=== PATIENT | female | born 1970 | race Caucasian/White ===

== ENCOUNTER 2018-09-01 07:34 | Day surgery (SDC) | payer MEDICAID ==
[~2018-09-01 07:34] MED LIST: CEFAZOLIN 2 GM/50 ML (PMX) 50 ML IVPB; SOD CHLORIDE 0.9% 1,000 ML IV
[2018-09-01] MEDS ORDERED: PROPOFOL 40 ML (08:39)
[2018-09-01] MEDS ORDERED: ONDANSETRON 4 MG INJ (08:39)
[2018-09-01] MEDS ORDERED: LIDOCAINE 2% (SDV) 5 ML INJ (08:39)
[2018-09-01] MEDS ORDERED: MIDAZOLAM 1 MG/ML 2 ML INJ (08:39)
[2018-09-01] MEDS ORDERED: FENTAnyl 50 MCG/ML VIAL (08:39)
[2018-09-01] MEDS ORDERED: CEFAZOLIN 1 GM INJ (08:39)
[2018-09-01] MEDS ORDERED: DEXAMETHASONE 4 MG/ML 5 ML INJ (08:40)
[2018-09-01] MEDS ORDERED: FAMOTIDINE 20 MG INJ (08:40)
[2018-09-01] MEDS: ACETAMINOPHEN 500 MG TAB PO (09:16)
[2018-09-01] MEDS ORDERED: METOCLOPRAMIDE 10 MG INJ (09:19)
[2018-09-01] MEDS ORDERED: ALBUTEROL 0.083% (NEB) 2.5 MG/3 ML AMP HHN (09:30)
[2018-09-01] MEDS ORDERED: HYDROmorphONE 1 MG/5 ML IV SYRINGE IV (09:30)
[2018-09-01] MEDS ORDERED: LABETALOL HCL 20MG INJ IV (09:30)
[2018-09-01] MEDS ORDERED: MEPERIDINE 25 MG INJ IV (09:30)
[2018-09-01] MEDS ORDERED: FENTAnyl 50 MCG/ML VIAL IV ×2 (09:30)
[2018-09-01] MEDS ORDERED: DIPHENHYDRAMINE 50 MG INJ IV (09:30)
[2018-09-01] MEDS ORDERED: OXYCODONE/ACETAMINOPHEN (5/325) TAB PO ×2 (09:30)
[2018-09-01] MEDS ORDERED: morphine (1 MG/ML) 10ML SYRINGE IV ×2 (09:30)
[2018-09-01] MEDS ORDERED: PHENYLephrine (100 MCG/ML) 5ML SYG (10:10)
[2018-09-01] MEDS ORDERED: EPHEDrine SULFATE 50 MG/5 ML SYG (10:14)
[2018-09-01] MEDS ORDERED: EPHEDrine SULFATE 50 MG/5 ML SYG IV (11:00)
[2018-09-01] MEDS ORDERED: HYDROCODONE/APAP (7.5/325) TAB PO (11:00)
[2018-09-01] MEDS: HYDROmorphONE 1 MG/5 ML IV SYRINGE IV ×3 (11:17→11:34)
[2018-09-01] MEDS: ONDANSETRON 4 MG INJ IV (11:20)
== END 2018-09-01 13:00 | disposition home or self-care (01) ==
LOC: SDS 07:34
DX: D24.1 Benign neoplasm of right breast (principal); I10 Essential (primary) hypertension; Z86.73 Personal history of transient ischemic attack (TIA), and cerebral infarction without residual deficits
CPT/HCPCS: 19120; 84703; 88307